=== PATIENT | male | born 1960 | race Caucasian/White ===

== ENCOUNTER 2016-09-16 13:16 | Emergency (ER) | payer OTHER ==
[~2016-09-16] VITALS: Ht 177.8 cm; Wt 90.7 kg
[2016-09-16 13:19] VITALS: BP 142/80
== END 2016-09-16 14:52 | disposition home or self-care (01) ==
LOC: ED 14:47
DX: R53.83 Other fatigue (principal); J02.0 Streptococcal pharyngitis
CPT/HCPCS: 99283